=== PATIENT | male | born 1980 | race Caucasian/White ===

== ENCOUNTER 2018-01-25 20:20 | Emergency (ER) | payer BC, SELFPAY ==
[2018-01-25 20:21] VITALS: BP 148/86; PULSE 84; RESP 20; TEMP 36.9; O2SAT 97; BMI 37.3
[2018-01-25 21:38] LABS: Absolute Lymphocyte Count 1.51 X10^3/ul (0.83-4.51); Absolute Neutrophil Count 2.9 X10^3/uL (2.0-7.7); Basophil# 0.02 X10^3/uL; Basophil% 0.4 % (0-1); Eosinophil# 0.08 X10^3/uL; Eosinophils% 1.6 % (0-5); Hemoglobin 16.4 g/dl (13.0-16.5); Lymphocyte # 1.51 X10^3/ul (4.0); Lymphocyte % 30.5 % (19-41); Mean Corp Hgb Conc 34.9 g/gl (32-36); Mean Corpuscular Hgb 31.9 pg (27.0-32.0); Mean Corpuscular Volume 91.4 fL (80-94); Mean Platelet Vol. 9.7 fl (6.2-12.0); Monocyte# 0.39 X10^3/uL; Monocyte% 7.9 % (0-10); Neutrophil # 2.88 X10^3/uL (2.7-7.7); Neutrophil % 58.2 % (47-70); POSITIVE COUNT NO; POSITIVE DIFFERENTIAL NO; POSITIVE MORPHOLOGY NO; Platelet Count 151 K/mm3 (150-450); RBC Distribution Width CV 13.4 % (11.6-14.6); RBC Distribution Width SD 44.4 fl (35.1-43.9); Red Blood Count 5.14 M/mm3 (4.6-6.2)
[2018-01-25 22:02] LABS: AST(SGOT) 44 U/L (15-37); Alanine Aminotransfer ALT/SGPT 115 U/L (16-61); Albumin, Serum 4.4 g/dL (3.2-5.0); Alkaline Phosphatase 70 U/L (45-117); Globulin 3.3 g/dL (2.2-4.2); Protein, Total 7.7 g/dL (6.4-8.2)
[2018-01-25 22:29] VITALS: BP 150/93; PULSE 72; RESP 16; O2SAT 98
[2018-01-25 22:29] LABS: Bacteria 0 SEEN /hpf (None Seen); Mucous, Urine 0 SEEN /hpf (<or=2+); Squamous Epithelial Cells - UA 0 SEEN /hpf (0-5)
[2018-01-25 22:39] LABS: Color, Urine Yellow (Yellow); Glucose, Dipstick Normal (Normal); Ketone-Dipstick Negative (Negative); Leukocyte Esterase-Dipstick Negative /ul (Negative); Nitrite-Dipstick Negative (Negative); Occult Blood-Urine 10 /ul (Negative); Protein-Dipstick Negative (Negative); Urine Bilirubin Dipstick Negative (Negative); Urine Clarity Clear (Clear); Urine Urobilinogen Normal (Normal)
[2018-01-25 22:47] LABS: Red Blood Cells-Urine 0-5 SEEN /hpf (0-5)
[2018-01-25 22:48] LABS: White Blood Cells 0-5 SEEN /hpf (0-5)
[2018-01-25 23:05] LABS: Anion Gap 7 (5-15); BUN 13 mg/dL (7-18); Chloride 101 mmol/L (98-107); Creatinine, Serum 1.18 mg/dL (0.70-1.30); EST Glomerular Filtration Rate 74 mL/min (>60); Est Glom Filt Rate - Afr Amer 89 mL/min (>60); Estimated Creatinine Clearance 102.44 ml/min; Glucose 96 mg/dL (74-106); Magnesium 2.3 mg/dL (1.6-2.6); Phosphorus 3.1 mg/dL (2.5-4.9); Potassium 3.7 mmol/L (3.5-5.1); Sodium Level 139 mmol/L (136-145)
--- NOTE | 2018-01-25 23:45 | ED.VISSUMM ---
- ER Visit Summary Date of Service: 01/25/18 Chief Complaint: Swelling History of Present Illness: The patient is a 37 M presenting for evaluation secondary to swelling. Patient states that over the course last 3 days he has noticed progressive swelling in his lower extremity starting from his ankles going up his legs. Patient states that it is also associated with a tingling sensation in his legs face and fingers. Patient denies any chest pain shortness of breath exertional dyspnea or orthopnea. Patient states he had prior similar episodes before he went on blood pressure medicines, but has been on hydrochlorothiazide lisinopril for about 4 years now. No recent changes in his doses. No recent injuries or illnesses. Review of systems otherwise negative. Physical Examination: Vital signs within normal limits, normal oxygenation. Obese male no acute distress. Head normocephalic. Moist mucous membranes no evidence of lip or tongue swelling. Neck supple. Heart regular rate and rhythm no murmurs normal S1-S2 no gallops. Lungs sounds clear to auscultation bilaterally no rales noted in the bases. Abdomen soft nontender. +1 bilaterally symmetric lower extremity edema noted. No skin rashes. Remainder physical otherwise unremarkable. Test Results: CBC normal, chemistry normal, magnesium phosphate within normal limits, liver panel shows mildly elevated total bili at 2.0 which appears to be predominantly indirect. Emergency Department Course and Treatment: Patient presented for evaluation secondary to lower extremity edema. Patient was checked with lab work including CBC chemistry liver panel magnesium phosphate and urinalysis. He shows no signs of heart failure no signs of liver failure no signs of electrolyte abnormality. At this point I see no reason for further workup or admission, but rather the patient can follow-up with his primary care physician about this. He was instructed on conservative management of peripheral edema. All questions were answered patient was discharged. Disposition: Discharge Impression: 1. Peripheral edema This note was generated with [employer] dictation software. It may contain incorrect words, spelling, and punctuation that were not noted in review of the chart prior to signing ED Disposition - Plan for ED Patient: Disposition: Home or Assisted Living Chief Complaint: Allergic Reaction Diagnosis: Peripheral edema Instructions: ED Leg Swelling Bilateral Referrals: Salas Mahajan MD [Primary Care Provider] - 5-7 Days
[2018-01-26 00:19] VITALS: BP 147/81; PULSE 78; RESP 16; O2SAT 99
== END 2018-01-26 00:20 | disposition home or self-care (01) ==
PROVIDERS: Emergency Provider Emergency Medicine; Family Provider Family Medicine; PCP Family Medicine
DX: R60.0 Localized edema (principal); I10 Essential (primary) hypertension; E66.9 Obesity, unspecified; Z79.899 Other long term (current) drug therapy
CPT/HCPCS: 80048; 80076; 81001; 83735; 84100; 85025; 99282; A4216

== ENCOUNTER 2019-09-19 16:54 | Observation (INO) | payer BC, SELFPAY ==
[2019-09-19 16:55] VITALS: BP 159/105; PULSE 85; RESP 19; TEMP 36.6; O2SAT 98; BMI 39.1
--- NOTE | 2019-09-19 17:06 | CT_ITS ---
STUDY: CT ABDOMEN AND PELVIS WITHOUT CONTRAST REASON FOR EXAM: Male, 39 years old. Left flank pain. RADIATION DOSAGE (If Supplied By Facility): CTDIvol = ( 14.80 ) mGy, DLP = ( 851.86 ) mGycm TECHNIQUE: Transaxial images were obtained from the dome of the diaphragm to the symphysis pubis without oral contrast, and without intravenous contrast. Sagittal and coronal images were reconstructed. Individualized dose optimization techniques were used for this CT. COMPARISON: None. FINDINGS: The visualized lung bases are unremarkable. The visualized portions of the heart are within normal limits. There is decreased attenuation of the liver consistent with severe steatosis. There is hepatomegaly. Normal gallbladder and extrahepatic biliary system. There is moderate splenomegaly. Normal pancreas. Normal bilateral adrenal glands. Normal right kidney. Left kidney shows mild perinephric stranding and mild hydronephrosis along with left hydroureter related to a 7 mm distal left ureteral calculus seen on coronal image 53 and axial image 179. Normal visualized stomach. Normal small intestine. Normal colon. The appendix is visualized and appears normal. Normal abdominal aorta. Normal inferior vena cava. Normal retroperitoneum. Normal urinary bladder. There is a left-sided inguinal hernia containing adipose tissue. Normal osseous structures. CT/Abdomen/Pelvis without Cont IMPRESSION: Obstruction of the left kidney collecting system and ureter from a 7 mm distal left ureteral stone. Severe fatty infiltration. Hepatosplenomegaly. Electronically Signed: Davi Malcolm MD at 17:56 EST , Service support ,
[2019-09-19] MEDS: Ondansetron 4 MG/2 ML Vial IV (17:27)
[2019-09-19] MEDS: Morphine 4 MG/ML Syringe IV (17:28)
[2019-09-19] MEDS: 0.9% Normal Saline 1,000 ML 999 ML IV (17:28)
--- NOTE | 2019-09-19 17:29 | ED.DCSUM_ITS ---
- ER Visit Summary Date of Service: 09/19/19 Chief Complaint: Left flank pain History of Present Illness: The patient is a 39 M presenting with left flank pain. This started 3 hours ago. He was seen by his primary care physician and sent to the ED for concern of kidney stone. No history of kidney stones, he does have a family history of kidney stones. He has left flank pain, nausea, vomiting. Per PCP he had microscopic hematuria. Denies fever or other complaints. Physical Examination: Vitals are stable. Patient is afebrile. Alert no acute distress. HEENT exam is unremarkable. Neck is supple. Lungs are clear and equal bilaterally. Heart is regular rate and rhythm. Abdomen is soft nontender nondistended. Left CVA tenderness Extremities are unremarkable. Skin is warm and dry. No focal neurologic deficit. Remainder of exam is unremarkable. Emergency Department Course and Treatment: Patient was given IV fluids, morphine, Zofran. Urinalysis shows 0 white blood cells, 25-[address] abdomen pelvis shows obstruction of the left kidney collecting system and ureter from a 7 mm distal left ureteral stone. Severe fatty infiltration. Hepatosplenomegaly. Patient continues to have pain and was given Dilaudid IV. Patient continues to have pain. Discussed with Dr. Calero. Patient will be admitted. Disposition: Admission Impression: Urolithiasis This note was generated with [employer] dictation software. It may contain incorrect words, spelling, and punctuation that were not noted in review of the chart prior to signing ED Disposition - Plan for ED Patient: Referrals: Salas Mahajan MD [Primary Care Provider] -
[2019-09-19 17:45] LABS: Squamous Epithelial Cells - UA 0 SEEN /hpf (0-5); White Blood Cells 0 SEEN /hpf (0-5)
[2019-09-19 17:48] LABS: Color, Urine Yellow (Yellow); Glucose, Dipstick Normal (Normal); Ketone-Dipstick 5 mg/dl (Negative); Leukocyte Esterase-Dipstick Negative /ul (Negative); Nitrite-Dipstick Negative (Negative); Occult Blood-Urine 250 /ul (Negative); Protein-Dipstick 100 mg/dl (Negative); Urine Bilirubin Dipstick Negative (Negative); Urine Clarity Clear (Clear); Urine Urobilinogen Normal (Normal); Urine pH 6.5 (5.0 - 8.0)
[2019-09-19] MEDS: HYDROmorphone 1 MG/ML Syringe IV ×2 (18:05→19:42)
[2019-09-19 18:11] VITALS: RESP 12
[2019-09-19 18:16] LABS: Bacteria 2+ /hpf (None Seen); Mucous, Urine 3+ /hpf (<or=2+); Red Blood Cells-Urine 25-50 SEEN /hpf (0-5)
[2019-09-19 19:16] LABS: Absolute Lymphocyte Count 1.09 X10^3/uL (0.83-4.51); Basophil# 0.08 X10^3/uL; Basophil% 0.8 % (0-1); Eosinophil# 0.02 X10^3/uL; Eosinophils% 0.2 % (0-5); Lymphocyte # 1.09 X10^3/ul (4.0); Lymphocyte % 11.1 % (19-41); Mean Corp Hgb Conc 34.7 g/dL (32-36); Mean Corpuscular Hgb 31.3 pg (27.0-32.0); Mean Corpuscular Volume 90.2 fL (80-94); Mean Platelet Vol. 10.9 fl (6.2-12.0); Monocyte# 0.48 X10^3/uL; Monocyte% 4.9 % (0-10); NRBC Flagged by Analyzer 0 % (0-5); Neutrophil # 7.96 X10^3/uL (2.7-7.7); Neutrophil % 81.4 % (47-70); Platelet Count 211 K/mm3 (150-450); RBC Distribution Width CV 12.7 % (11.6-14.6); Red Blood Count 5.43 M/mm3 (4.6-6.2); White Blood Count 9.8 K/mm3 (4.4-11.0)
[2019-09-19 19:20] VITALS: BP 172/92; PULSE 78; RESP 20; O2SAT 94
[2019-09-19 19:23] LABS: Anion Gap 7 (5-15); BUN 21 mg/dL (7-18); BUN/Creat Ratio 13.6 RATIO (10-20); Calcium,Total 9.9 mg/dL (8.5-10.1); Chloride 104 mmol/L (98-107); Creatinine, Serum 1.54 mg/dL (0.70-1.30); EST Glomerular Filtration Rate 54 mL/min (>60); Est Glom Filt Rate - Afr Amer 65 mL/min (>60); Estimated Creatinine Clearance 76.97 ml/min; Glucose 112 mg/dL (74-106); Potassium 3.6 mmol/L (3.5-5.1); Sodium Level 139 mmol/L (136-145)
--- NOTE | 2019-09-19 19:26 | ED.RN ---
DR. LOPEZ MADE AWARE OF PATIENT'S INCREASING PAIN CURRENTLY A LEVEL 5/10 AND CLIMBING. SHE SAID SHE WOULD GIVE HIM SOMETHING IN A LITTLE BIT.
--- NOTE | 2019-09-19 19:30 | ED.RN ---
DR SAMUEL HERNANDEZ FOR DR LOPEZ
[2019-09-19 19:48] VITALS: BMI 39.1
--- NOTE | 2019-09-19 19:48 | PCM.HP.STD ---
Problem List (1) Ureteral calculi Status: Acute Comment: 7mm stone in distal left ureter History of Present Illness Date of Admission: 09/19/19 Chief Complaint: intractable pain from kidney stone The patient is a 39 year old Male with a 7mm stone in distal left ureter. Given multiple doses of morphine and still in pain ER asked me to admit patient for intractable pain. otherwise healthy male Past Medical History Allergies No Known Allergies Allergy (Verified 09/19/19 16:57) Home Medications: Ambulatory Orders Medication Instructions Recorded Cholecalciferol (Vitamin D3) 5,000 unit PO DAILY 01/25/18 [Vitamin D3] Hydrochlorothiazide [Hctz] 25 mg PO DAILY 01/25/18 Lisinopril [Zestril] 10 mg PO DAILY 01/25/18 Milk Thistle 150 mg PO DAILY 01/25/18 Surgical History: noncontributory Psychiatric History: No pertinent psych hx Lives: With Family Smoking Status: Former smoker Tobacco Use: Non-smoker Alcohol: None Drugs: None - *Family History Maternal History Items: No pertinent history Review of Systems Constitutional: Denies: Chills, Fever, Weight Change HEENT: Denies: Head Aches, Sinus Congestion, Sinus Drainage Cardiovascular: Denies: Chest Pain, Palpitations Respiratory: Denies: Cough, Shortness of breath at rest, Sputum production Gastrointestinal: Reports: Abdominal Pain. Denies: Nausea, Vomiting Genitourinary: Denies: Dysuria Musculoskeletal: Reports: Back Pain. Denies: Joint Pain, Joint Tenderness Skin: Denies: Rash, Wounds Neurological: Denies: Numbness, Tingling, Focal weakness Psychiatric: Denies: Anxiety, Depression, Homicidal Ideations, Suicidal Ideations Hematologic/ Lymphatic: Denies: Easy Bruising, Easy Bleeding VTE Information - Inpt Only VTE Present on Admission: No VTE Mechan Device Prophylaxis: SCD's Patient Problems: Active and Suspected Problems Ureteral calculi (Acute) 7mm stone in distal left ureter - Physical Exam Vitals/I&O's: Vital Signs Temp Pulse Resp BP Pulse Ox 97.9 F 78 20 H 172/92 H 94 09/19/19 16:55 09/19/19 19:20 09/19/19 19:20 09/19/19 19:20 09/19/19 19:20 Oxygen Delivery Method Room Air Weight: 142 kg Body Mass Index (BMI) 39.1 Intake and Output for Last 24 Hours 09/17/19 09/18/19 09/19/19 23:59 23:59 23:59 Intake Total 999 / 999 Balance 999 / 999 General: Alert, Oriented x3, Cooperative HEENT: Atraumatic, PERRLA, EOMI, Normocephalic Neck: Supple, No JVD, Negative Carotid Bruits Lungs: Clear to auscultation, Normal air movement Cardiovascular: Regular rate, No murmurs Abdomen: Bowel Sounds Present, Soft, Non Tender Extremities: No edema, Capillary Refill Less than 3 Seconds Skin: No rashes, No breakdown Musculoskeletal: No Tenderness to Palpation of Joints or Extremities Neurological: Cranial nerves II-XII grossly intact Psych/Mental Status: Normal Affect, Appropriate Laboratory Results 09/19/19 17:12: WBC 9.8, RBC 5.43, Hgb 17.0 H, Hct 49.0, MCV 90.2, MCH 31.3, MCHC 34.7, RDW Std Deviation 42.0, RDW Coeff of [place] 12.7, Plt Count 211, MPV 10.9, Immature Gran % (Auto) 1.600 H, Neut % (Auto) 81.4 H, Lymph % (Auto) 11.1 L, [place] % (Auto) 4.9, Eos % (Auto) 0.2, Baso % (Auto) 0.8, Absolute Neuts (auto) 8.0 H, Absolute Lymphs (auto) 1.09, Nucleated RBC % 0 09/19/19 17:12: Sodium 139, Potassium 3.6, Chloride 104, Carbon Dioxide 28.0, Anion Gap 7, BUN 21 H, Creatinine 1.54 H, Estim Creat Clear Calc 76.97, Est GFR (MDRD) Af Amer 65, Est GFR (MDRD) Non-Af 54 L, BUN/Creatinine Ratio 13.6, Glucose 112 H, Calcium 9.9 09/19/19 17:30: Urine Color Yellow, Urine Clarity Clear, Urine pH 6.5, Ur Specific [place] 1.020, Urine Protein 100 H, Urine Glucose (UA) Normal, Urine Ketones 5 H, Urine Occult Blood 250 H, Urine Nitrite Negative, Urine Bilirubin Negative, Urine Urobilinogen Normal, Ur Leukocyte Esterase Negative, Urine RBC 25-50 SEEN, Urine WBC 0 SEEN, Ur Squamous Epith Cells 0 SEEN, Urine Bacteria 2+, Urine Mucus 3+ Assessment/Plan All Active Problems Ureteral calculi (Acute) Rowdy for kidney stone if can't pass it then plan for surgery on Tuesday with ureteroscopy and laser stone and stent.
[2019-09-19 20:49] VITALS: BMI 39.4
[2019-09-19 21:00] VITALS: BP 159/92; PULSE 81; RESP 18; TEMP 36.6; O2SAT 98
[2019-09-19] MEDS: Acetaminophen 325 MG Tablet 650 MG PO (21:08)
[2019-09-19] MEDS: oxyCODONE 5 MG Tablet 10 MG PO (21:09)
--- NOTE | 2019-09-19 21:15 | NURSING ---
pt had large emesis in sink after po pain meds, iv antiemetic and pain med then given
[2019-09-19] MEDS: proCHLORPERazine 10 MG/2 ML Vial 5 MG IV (21:19)
[2019-09-19] MEDS: 0.9% Saline Lock 10 ML Syringe IV ×2 (21:20→23:05)
[2019-09-19] MEDS: Morphine 2 MG/ML Syringe IV (21:20)
[2019-09-19] MEDS: 0.9% Normal Saline 1,000 ML 75 ML IV (23:04)
[2019-09-19] MEDS: Famotidine 20 MG Tablet PO (23:06)
[2019-09-20 03:50] VITALS: BP 142/76; PULSE 81; RESP 16; TEMP 37.1; O2SAT 98
--- NOTE | 2019-09-20 05:55 | RAD_ITS ---
INDICATION: Follow-up for kidney stone. EXAMINATION/TECHNIQUE: X-RAY - supine views of the Abdomen COMPARISON: Comparison is made with prior CT scan of the abdomen and pelvis dated September 19, 2019. FINDINGS: BOWEL GAS PATTERN: Moderate amount of fecal material is seen in the colon. No bowel or stomach distention. FREE AIR: Not assessed on a single supine view. ORGANOMEGALY: Not seen. CALCIFICATIONS: Questionable 4 mm calculus at left ureterovesical junction. LOWER CHEST: No acute pathology. BONES AND SOFT TISSUES: Multiple phleboliths are seen in the pelvis. RAD/Abdomen Single View IMPRESSION: Non-obstructive bowel gas pattern. Multiple phleboliths are seen in the pelvis. This makes it difficult to assess for possible ureteral calculus although there is a questionable 4 mm calculus at left ureterovesical junction. Electronically Signed: Samson Artis, at 8:48 EST , Service support ,
--- NOTE | 2019-09-20 06:00 | EKG12_ITS ---
Test Reason : AM Blood Pressure : / mmHG Vent. Rate : 083 BPM Atrial Rate : 083 BPM P-R Int : 186 ms QRS Dur : 118 ms QT Int : 378 ms P-R-T Axes : 042 027 020 degrees QTc Int : 444 ms Normal sinus rhythm Normal ECG When compared with ECG of 19-FEB-2016 15:31, No significant change was found Confirmed by GISSELL COOMBS, WILLEM ([id number]), editor greeting card TATO VEGA ([id number]) on 09/25/2019 3:12:42 PM Referred By: Rodriguez Calero Confirmed By:WILLEM BORRERO MD
[2019-09-20 06:34] LABS: Absolute Lymphocyte Count 1.47 X10^3/uL (0.83-4.51); Absolute Neutrophil Count 5.5 X10^3/uL (2.0-7.7); Basophil# 0.05 X10^3/uL; Basophil% 0.6 % (0-1); Eosinophil# 0.03 X10^3/uL; Eosinophils% 0.4 % (0-5); Hematocrit 43.1 % (40-54); Hemoglobin 14.9 g/dL (13.0-16.5); Lymphocyte # 1.47 X10^3/ul (4.0); Lymphocyte % 18.6 % (19-41); Mean Corp Hgb Conc 34.6 g/dL (32-36); Mean Corpuscular Hgb 31.2 pg (27.0-32.0); Mean Corpuscular Volume 90.4 fL (80-94); Mean Platelet Vol. 10.1 fl (6.2-12.0); Monocyte# 0.79 X10^3/uL; NRBC Flagged by Analyzer 0 % (0-5); Neutrophil # 5.48 X10^3/uL (2.7-7.7); Neutrophil % 69.4 % (47-70); Platelet Count 150 K/mm3 (150-450); RBC Distribution Width CV 12.6 % (11.6-14.6); RBC Distribution Width SD 41.7 fl (35.1-43.9); Red Blood Count 4.77 M/mm3 (4.6-6.2); White Blood Count 7.9 K/mm3 (4.4-11.0)
[2019-09-20 06:48] LABS: Anion Gap 7 (5-15); BUN 20 mg/dL (7-18); BUN/Creat Ratio 13.1 RATIO (10-20); Calcium,Total 8.7 mg/dL (8.5-10.1); Chloride 105 mmol/L (98-107); Creatinine, Serum 1.53 mg/dL (0.70-1.30); EST Glomerular Filtration Rate 54 mL/min (>60); Est Glom Filt Rate - Afr Amer 65 mL/min (>60); Estimated Creatinine Clearance 77.47 ml/min; Glucose 95 mg/dL (74-106); Potassium 3.5 mmol/L (3.5-5.1); Sodium Level 140 mmol/L (136-145)
--- NOTE | 2019-09-20 07:36 | PCM.CONS.B ---
Problem List (1) Ureteral calculi Status: Acute Comment: 7mm stone in distal left ureter - Consult Date of Consult: 09/20/19 Patient admitted overnight for a kidney stone today is doing relatively well plan to get a KUB to see if he is past the stone today we talked about doing surgery we will put him on the schedule for tomorrow for shockwave lithotripsy he is agreeable with this plan n.p.o. at midnight we will have him sign a consent form.
[2019-09-20] MEDS: 0.9% Saline Lock 10 ML Syringe IV ×2 (07:44→08:25)
[2019-09-20 09:47] VITALS: BP 155/78; PULSE 73; RESP 18; TEMP 36.8; O2SAT 94
[2019-09-20] MEDS: Famotidine 20 MG Tablet PO ×2 (10:25→20:28)
[2019-09-20] MEDS: Lisinopril 10 MG Tablet PO (10:25)
[2019-09-20] MEDS: hydroCHLOROthiazide 25 MG Tablet PO (10:25)
[2019-09-20 10:30] VITALS: PULSE 72
[2019-09-20] MEDS: 0.9% Normal Saline 1,000 ML 75 ML IV (12:55)
[2019-09-20 13:53] VITALS: BP 143/87; PULSE 80; RESP 18; TEMP 37; O2SAT 95
--- NOTE | 2019-09-20 14:28 | CHAPLAIN ---
Type of Pastoral Visit _x__ Initial Visit ___ Follow-up Visit ___ On-call Visit ___ General Patient Visit ___ Spiritual Assessment ___ Family Conference ___ Bereavement ___ Rapid Response ___ Code Blue ___ Other (describe below) Pastoral Care Referral From _x__ Patient _x__ Family ___ Nurse ___ Physician ___ Tinsmith Apprentice ___ Robotic Maintenance Technician ___ Other (describe below) Sacrament/Intervention _x__ Active listening ___ Anointing ___ Church ___ Bereavement ___ Communion ___ Annia exploration ___ ___ Life review _x__ Prayer ___ Reconciliation ___ Sacrament of Sick _x__ Supportive presence ___ Wedding ___ Other (describe below) Pastoral Comments
[2019-09-20 20:20] VITALS: BP 146/93; PULSE 71; RESP 16; TEMP 36.9; O2SAT 97
[2019-09-21] VITALS (10 sets, daily range): BP systolic 141–160; BP diastolic 86–105; PULSE 70–98; RESP 16–22; TEMP 36.7–37.3; O2SAT 94–99
[2019-09-21] MEDS: 0.9% Normal Saline 1,000 ML 75 ML IV ×2 (02:11→12:45)
[2019-09-21] MEDS: Lisinopril 10 MG Tablet PO (09:48)
[2019-09-21] MEDS: Famotidine 20 MG Tablet PO (09:48)
[2019-09-21] MEDS: hydroCHLOROthiazide 25 MG Tablet PO (09:48)
--- NOTE | 2019-09-21 10:27 | PCM.DC ---
- Discharge Diagnoses Current Active Problems: Current Active and Chronic Problems Ureteral calculi (Acute) 7mm stone in distal left ureter Reason(s) for Visit for Discharge Instructions: left ureteroscopy laser and stent You will use the following diet at home:: Regular Your food should be the consistency of: Regular Discharge Activity: Return to Normal Activity Call your doctor if your incision/area has: Continuous Slow Oozing, Sudden Increased Bleeding, Increased Pain/ Swelling, Increased Redness Suture Line Care: Avoid Pulling/Pushing, Avoid Pinching/Bending Allergies/Adverse Reactions: Allergies No Known Allergies Allergy (Verified 09/19/19 16:57) Medications to take at Discharge Cholecalciferol (Vitamin D3) [Vitamin D3] 5,000 unit PO DAILY 01/25/18 Hydrochlorothiazide [Hctz] 25 mg PO DAILY 01/25/18 Lisinopril [Zestril] 10 mg PO DAILY 01/25/18 Ciprofloxacin [Cipro] 500 mg PO BID #6 tab 09/21/19 Hydrocodone/Acetaminophen [[place] 5-325 Tablet] 1 ea PO Q4H PRN PRN 5 Days #14 tab 09/21/19 Phenazopyridine [Pyridium] 100 mg PO TID #14 tab 09/21/19 The following prescriptions were given: Ciprofloxacin [Cipro] 500 mg PO BID #6 tab Prescription Printed Hydrocodone/Acetaminophen [[place] 5-325 Tablet] 1 ea PO Q4H PRN PRN 5 Days #14 tab PRN Reason: Pain Score 1-10/10 Prescription Printed Phenazopyridine [Pyridium] 100 mg PO TID #14 tab Prescription Printed Primary Care Physician: Salas Mahajan MD [Primary Care Provider] - Test Results: Test results from this visit will be discussed in further detail at your follow-up appointment, if applicable. Please Follow Up With: Luisa Weaver Dr's SHIPPING HAND When: Next week for stent removal
[2019-09-21] MEDS: Cefazolin 2 GM in 0.9% Normal Saline 100 ML IV (11:04)
--- NOTE | 2019-09-21 11:14 | OP.PCM_ITS ---
Problem List (1) Ureteral calculi Status: Acute Comment: 7mm stone in distal left ureter Report of Operation Date of Procedure: 09/21/19 Pre-Operative Diagnosis: Left ureteral calculi causing obstruction Post-Operative Diagnosis: The same Surgery/Procedure Performed:: Cystoscopy, left ureteroscopy, balloon dilation of the left ureter, laser lithotripsy of the stone, left retrograde pyelogram, left interpretation of fluoroscopic images, left stent placement. Description of Surgical Findings:: 39-year-old male taken back to the operating room at this reduction of anesthesia he was placed in dorsal lithotomy position, penis and testicles were prepped and draped in usual sterile fashion, he was given antibiotics beforehand, but into the bladder with a 21 [place] rigid cystourethroscope, the entire length the urethra is normal, the prostate was normal, identified the left ureteral orifice and advanced a wire up the left ureter, I then advanced a balloon dilator over the wire and balloon dilated the distal left ureter with a 12 [place] 10 cm balloon dilator once the ureter was balloon dilated and of the wire in place backed out the cystoscope and then next the wire went in with a semirigid ureteroscope was able to get to the urethra and the bladder quite easily I then identified the ureter was able to get into the ureter quite easily went up the ureter and encountered the stone we then used a 270 ?m laser fiber and laser the stone with tiny pieces used settings of 1.6 J and 6 Hz and after 2 minutes of lasering the stone the stone was lasered completely and then performed a retrograde pyelogram, and then advanced a wire up over the wire and placed a stent and then left a stent in position left the string of the stent bladder was drained left a long string of stents for easy extraction next week and the stone was completely treated. Type of Anesthesia:: General Drains: stent left side - Admit VTE Documentation VTE Present on Admission: No VTE Mechan Device Prophylaxis: SCD's
--- NOTE | 2019-09-21 11:17 | PCM.DC.SUM ---
Discharge Date and Diagnosis - Problem List Patient Problems: Active and Suspected Problems Ureteral calculi (Acute) 7mm stone in distal left ureter Date of Admission: 09/19/19 Date of Discharge: 09/21/19 - Primary Discharge Diagnosis Active and Suspected Problems Ureteral calculi (Acute) 7mm stone in distal left ureter Hospital Course and Treatment Imaging Results: 09/21/19 16:25 O.R. Fluoro for C-Arm [RAD] Urgent Operations: - - left ureteroscopy laser of stone Procedures: None Summary of Care Provided: The patient is a 39 year old Male admitted for stone under went laser stone and stent, discharged home after procedure with a stent Patient Problems: Active and Suspected Problems Ureteral calculi (Acute) 7mm stone in distal left ureter - Physical Exam Vitals/I&O's: Vital Signs Temp Pulse Resp BP Pulse Ox 99.2 F H 78 22 H 151/86 H 95 09/21/19 08:35 09/21/19 08:35 09/21/19 08:35 09/21/19 08:35 09/21/19 08:35 Oxygen Delivery Method Room Air Weight: 143.335 kg Body Mass Index (BMI) 39.4 Intake and Output for Last 24 Hours 09/19/19 09/20/19 09/21/19 23:59 23:59 23:59 Intake Total 1100 / 1100 1868.75 / 1868.75 995 / 995 Output Total 500 / 500 3775 / 3775 650 / 650 Balance 600 / 600 -1906.25 / -1906.25 345 / 345 General: Alert, Oriented x3, Cooperative HEENT: Atraumatic, PERRLA, EOMI, Normocephalic Neck: Supple, No JVD, Negative Carotid Bruits Lungs: Clear to auscultation, Normal air movement Cardiovascular: Regular rate, No murmurs Abdomen: Bowel Sounds Present, Soft, Non Tender Extremities: No edema, Capillary Refill Less than 3 Seconds Skin: No rashes, No breakdown Musculoskeletal: No Tenderness to Palpation of Joints or Extremities Neurological: Cranial nerves II-XII grossly intact Psych/Mental Status: Normal Affect, Appropriate Current Medications Acetaminophen (Tylenol) 650 mg PO Q6H PRN PRN PRN Reason: Pain Score 1-3/Temp > 100.7 F Last Admin: 09/19/19 21:08 Dose: 650 mg Documented by: Docusate Sodium (Colace) 100 mg PO BID PRN PRN PRN Reason: Constipation Famotidine (Pepcid) 20 mg PO BID [facility] Last Admin: 09/21/19 09:48 Dose: 20 mg Documented by: Hydrochlorothiazide (Hctz) 25 mg PO DAILY [facility] Last Admin: 09/21/19 09:48 Dose: 25 mg Documented by: Sodium Chloride () 1,000 mls @ 75 mls/hr IV .[id number] [facility] Last Admin: 09/21/19 02:11 Dose: 75 mls/hr Documented by: Lisinopril (Zestril) 10 mg PO DAILY [facility] Last Admin: 09/21/19 09:48 Dose: 10 mg Documented by: Morphine Sulfate () 2 mg IV Q3H PRN PRN PRN Reason: Pain Score 6-10/10 Last Admin: 09/19/19 21:20 Dose: 2 mg Documented by: Ondansetron HCl (Zofran) 4 mg IV Q8H PRN PRN PRN Reason: NAUSEA/VOMITING Oxycodone HCl (Oxyir) 10 mg PO Q4H PRN PRN PRN Reason: Pain Score 4-5/10 Last Admin: 09/19/19 21:09 Dose: 10 mg Documented by: Prochlorperazine Edisylate (Compazine Iv) 5 mg IV Q4H PRN PRN PRN Reason: Breakthrough nausea/vomiting Last Admin: 09/19/19 21:19 Dose: 5 mg Documented by: Sodium Chloride () 10 - 40 ml IV UD PRN PRN Reason: SALINE FLUSH Last Admin: 09/20/19 08:25 Dose: 10 ml Documented by: Temazepam (Restoril) 15 mg PO QHS PRN PRN PRN Reason: INSOMNIA Discharge Activity: Return to Normal Activity Call your doctor if your incision/area has: Continuous Slow Oozing, Sudden Increased Bleeding, Increased Pain/ Swelling, Increased Redness Suture Line Care: Avoid Pulling/Pushing, Avoid Pinching/Bending Home Medications: Medications to take at Discharge Cholecalciferol (Vitamin D3) [Vitamin D3] 5,000 unit PO DAILY 01/25/18 Hydrochlorothiazide [Hctz] 25 mg PO DAILY 01/25/18 Lisinopril [Zestril] 10 mg PO DAILY 01/25/18 Ciprofloxacin [Cipro] 500 mg PO BID #6 tab 09/21/19 Hydrocodone/Acetaminophen [[place] 5-325 Tablet] 1 ea PO Q4H PRN PRN 5 Days #14 tab 09/21/19 Phenazopyridine [Pyridium] 100 mg PO TID #14 tab 09/21/19 Following Prescrptions Were Given to Patient: Ciprofloxacin [Cipro] 500 mg PO BID #6 tab Prescription Printed Hydrocodone/Acetaminophen [[place] 5-325 Tablet] 1 ea PO Q4H PRN PRN 5 Days #14 tab PRN Reason: Pain Score 1-08/23 Prescription Printed Phenazopyridine [Pyridium] 100 mg PO TID #14 tab Prescription Printed Primary Care Physician: Salas Mahajan MD [Primary Care Provider] - Please Follow Up With: Luisa Weaver - Dr Calero's SECURITY SUPPORT ANALYST When: Next week for stent removal Medical Necessity - Tobacco Use Smoking Status: Former smoker Tobacco Use: Non-smoker Meaningful Use Info Meaningful Use Diagnoses (Choose all that apply): None applicable
== END 2019-09-21 15:23 | disposition home or self-care (01) ==
LOC: ED 17:10 → MS3 20:02
PROVIDERS: Admitting Provider Urology; Emergency Provider Emergency Medicine; Family Provider Family Medicine; PCP Family Medicine; Referring Provider Urology; Visit Provider Urology
PROC: 0TJ98ZZ Inspection of Ureter, Via Natural or Artificial Opening Endoscopic (ICD-10-PCS; CPT 52352; principal; 2019-09-21 16:15)
DX: N13.2 Hydronephrosis with renal and ureteral calculous obstruction (principal); I10 Essential (primary) hypertension; G47.30 Sleep apnea, unspecified; Z23 Encounter for immunization; Z87.891 Personal history of nicotine dependence; Z79.899 Other long term (current) drug therapy
CPT/HCPCS: 00918; 52356; 36415; 74018; 74176; 76000; 80048; 81001; 85025; 93005; 96361; 96374; 96375; 96376; 99218; 99284; J7030; 90686; A4216; C1769; C2617; G0378; J2405

== ENCOUNTER → 2019-09-25 | Outpatient (CLI) | payer BC, SELFPAY ==
[2019-09-19 20:49] VITALS: BMI 39.4
== END | disposition home or self-care (01) ==
LOC: LABSPEC 17:07
PROVIDERS: Family Provider Family Medicine; PCP Family Medicine; Referring Provider Nurse Practitioner Adult Health; Visit Provider Nurse Practitioner Adult Health
DX: R82.998 Other abnormal findings in urine (principal)
CPT/HCPCS: 87086

== ENCOUNTER → 2019-11-19 15:12 | Outpatient (CLI) | payer BC, SELFPAY ==
[2019-11-19 16:04] LABS: Anion Gap 6 (5-15); BUN 17 mg/dL (7-18); BUN/Creat Ratio 15.2 RATIO (10-20); Chloride 106 mmol/L (98-107); Creatinine, Serum 1.12 mg/dL (0.70-1.30); EST Glomerular Filtration Rate 77 mL/min (>60); Est Glom Filt Rate - Afr Amer 94 mL/min (>60); Glucose 101 mg/dL (74-106); Potassium 3.8 mmol/L (3.5-5.1); Sodium Level 139 mmol/L (136-145)
[2019-11-20 09:03] LABS: PTHIN 48.3 pg/mL (18.4-80.1)
== END ==
PROVIDERS: Family Provider Family Medicine; PCP Family Medicine; Referring Provider Urology; Visit Provider Urology
DX: N20.1 Calculus of ureter (principal)
CPT/HCPCS: 36415; 80048; 83970

== ENCOUNTER → 2021-08-27 21:21 | Outpatient (CLI) | payer BC, SELFPAY ==
[2021-08-27 21:46] LABS: Absolute Neutrophil Count 4.4 X10^3/uL (2.0-7.7); Basophil# 0.05 X10^3/uL; Basophil% 0.7 % (0-1); Eosinophil# 0.07 X10^3/uL; Hemoglobin 16.3 g/dL (13.0-16.5); Lymphocyte % 25.9 % (19-41); Mean Corp Hgb Conc 34.7 g/dL (32-36); Mean Corpuscular Hgb 31.2 pg (27.0-32.0); Mean Platelet Vol. 10.7 fl (6.2-12.0); Monocyte# 0.54 X10^3/uL; Monocyte% 7.8 % (0-10); NRBC Flagged by Analyzer 0 % (0-5); Neutrophil % 63.3 % (47-70); Platelet Count 195 K/mm3 (150-450); RBC Distribution Width SD 42.7 fl (35.1-43.9); Red Blood Count 5.22 M/mm3 (4.6-6.2)
[2021-08-27 22:32] LABS: ALB/GLOB Ratio 1.2 RATIO (0.9-2.4); AST(SGOT) 60 U/L (15-37); Alanine Aminotransfer ALT/SGPT 153 U/L (16-61); Albumin, Serum 4.2 g/dL (3.2-5.0); Alkaline Phosphatase 78 U/L (45-117); Anion Gap 5 (5-15); BUN 14 mg/dL (7-18); Calcium,Total 9.3 mg/dL (8.5-10.1); Chloride 108 mmol/L (98-107); Cholesterol 179 mg/dL (200); Creatinine, Serum 1.27 mg/dL (0.70-1.30); EST Glomerular Filtration Rate 66 mL/min (>60); Est Glom Filt Rate - Afr Amer 80 mL/min (>60); Globulin 3.5 g/dL (2.2-4.2); Glucose 91 mg/dL (74-106); High Density Lipoprotein 30 mg/dL; Potassium 3.7 mmol/L (3.5-5.1); Protein, Total 7.7 g/dL (6.4-8.2); Sodium Level 141 mmol/L (136-145); Triglycerides 199 mg/dL; Very Low Density Lipoprotein 40 mg/dL (5-40)
== END ==
PROVIDERS: PCP Family Medicine; Visit Provider Nurse Practitioner
DX: Z00.00 Encounter for general adult medical examination without abnormal findings (principal)
CPT/HCPCS: 80053; 80061; 85025

== ENCOUNTER → 2022-07-29 | Outpatient (CLI) | payer BC, SELFPAY ==
[2022-07-29 21:38] LABS: Absolute Lymphocyte Count 1.19 X10^3/uL (0.83-4.51); Absolute Neutrophil Count 3.4 X10^3/uL (2.0-7.7); Basophil# 0.04 X10^3/uL; Basophil% 0.7 % (0-1); Eosinophil# 0.16 X10^3/uL; Hematocrit 47.3 % (40-54); Hemoglobin 16.3 g/dL (13.0-16.5); Lymphocyte # 1.19 X10^3/ul (0.83-4.51); Lymphocyte % 22.3 % (19-41); Mean Corp Hgb Conc 34.5 g/dL (32-36); Mean Corpuscular Volume 92.7 fL (80-94); Mean Platelet Vol. 10.8 fl (6.2-12.0); Monocyte# 0.51 X10^3/uL; Monocyte% 9.6 % (0-10); NRBC Flagged by Analyzer 0 % (0-5); Neutrophil # 3.42 X10^3/uL (2.7-7.7); Platelet Count 156 K/mm3 (150-450); RBC Distribution Width CV 13.8 % (11.6-14.6); RBC Distribution Width SD 47.5 fl (35.1-43.9); White Blood Count 5.3 K/mm3 (4.4-11.0)
[2022-07-29 22:07] LABS: ALB/GLOB Ratio 1.3 RATIO (0.9-2.4); AST(SGOT) 45 U/L (15-37); Alanine Aminotransfer ALT/SGPT 122 U/L (16-61); Albumin, Serum 4.1 g/dL (3.2-5.0); Alkaline Phosphatase 90 U/L (45-117); Anion Gap 8 (5-15); BUN 16 mg/dL (7-18); BUN/Creat Ratio 14.2 RATIO (10-20); Calcium,Total 9.3 mg/dL (8.5-10.1); Chloride 104 mmol/L (98-107); Cholesterol 123 mg/dL (200); Creatinine, Serum 1.13 mg/dL (0.70-1.30); EST Glomerular Filtration Rate 76 mL/min (>60); Est Glom Filt Rate - Afr Amer 91 mL/min (>60); Globulin 3.2 g/dL (2.2-4.2); Glucose 110 mg/dL (74-106); High Density Lipoprotein 29 mg/dL; Potassium 3.3 mmol/L (3.5-5.1); Protein, Total 7.3 g/dL (6.4-8.2); Sodium Level 139 mmol/L (136-145); Triglycerides 150 mg/dL; Very Low Density Lipoprotein 30 mg/dL (5-40)
== END | disposition home or self-care (01) ==
PROVIDERS: PCP Family Medicine; Visit Provider Nurse Practitioner
DX: I10 Essential (primary) hypertension (principal)
CPT/HCPCS: 80053; 80061; 85025

== ENCOUNTER → 2022-08-19 | Outpatient (CLI) | payer BC, SELFPAY ==
[2022-08-19 21:44] LABS: ALB/GLOB Ratio 1.4 RATIO (0.9-2.4); AST(SGOT) 33 U/L (15-37); Alanine Aminotransfer ALT/SGPT 85 U/L (16-61); Albumin, Serum 4.2 g/dL (3.2-5.0); Alkaline Phosphatase 87 U/L (45-117); Anion Gap 7 (5-15); BUN 14 mg/dL (7-18); BUN/Creat Ratio 13.1 RATIO (10-20); Calcium,Total 9.3 mg/dL (8.5-10.1); Chloride 104 mmol/L (98-107); Creatinine, Serum 1.07 mg/dL (0.70-1.30); EST Glomerular Filtration Rate 80 mL/min (>60); Est Glom Filt Rate - Afr Amer 97 mL/min (>60); Globulin 3.1 g/dL (2.2-4.2); Glucose 111 mg/dL (74-106); Magnesium 2.1 mg/dL (1.6-2.6); Potassium 3.4 mmol/L (3.5-5.1); Protein, Total 7.3 g/dL (6.4-8.2); Sodium Level 139 mmol/L (136-145); Thyroid Stim Hormone (TSH) 1.02 uIU/mL (0.358-3.74)
== END | disposition home or self-care (01) ==
PROVIDERS: PCP Family Medicine; Visit Provider Nurse Practitioner
DX: E87.6 Hypokalemia (principal); K76.0 Fatty (change of) liver, not elsewhere classified
CPT/HCPCS: 80053; 83735; 84443

== ENCOUNTER 2022-08-20 16:18 | Emergency (ER) | payer OTHER, SELFPAY ==
[2022-08-20 16:19] VITALS: BP 130/99; PULSE 101; RESP 18; TEMP 37.6; O2SAT 96; BMI 36.8
[2022-08-20 16:23] VITALS: BP 130/99; PULSE 101; RESP 16; TEMP 37.6; O2SAT 96
[2022-08-20 17:49] VITALS: PULSE 92; RESP 18; TEMP 37.9; O2SAT 97
--- NOTE | 2022-08-20 18:27 | EDS_ITS ---
HPI HPI - URI History of Present Illness Chief Complaint: Ear Problem Detail of Chief Complaint: Earache Informant: patient and spouse/S.O. Onset/Context/Timing Onset: Days Context: Gradual Onset Timing: Continuous Current Severity: Moderate Maximum Severity: Moderate Narrative Narrative: 43-year-old male history of hypertension. Was seen in urgent care initially placed on antibiotic he thinks was amoxicillin did not improve. He has had URI symptoms. Last 2 days he has had ear pain. He was seen again placed on ofloxacin eardrops and a Z-Vito. That is not improving. Denies nausea or vomiting. Denies any trauma to his ear. Denies any prior ear surgery. Prior similar symptoms: No Recent Illness/Hospitalization: No ROS ROS ED ROS Narrative Right earache. Review of Systems ROS Unobtainable: Denies due to encephalopathy Constitutional Constitutional ED: Denies chills or fever(s) Eyes Eyes: Denies blurry vision ENT ENT ED: Reports ear pain Cardiovascular Cardiovascular: Denies chest pain Respiratory/Chest Respiratory/Chest: Denies cough or dyspnea Gastrointestinal Gastrointestinal: Denies abdominal pain Genitourinary Genitourinary ED: Denies dysuria or hematuria Musculoskeletal Musculoskeletal: Denies arthralgias Integumentary Denies abscess Neurologic Neurologic: Denies headache(s) Psychiatric Psychiatric: Denies anxiety Endocrine Endocrinology: Denies cold intolerance Hematologic/Lymphatic Hematologic/Lymphatic: Denies easy bleeding Allergic/Immunologic Allergic/Immunologic ED: Denies mouth swelling or tongue swelling [facility] Medical History CHF (congestive heart failure) Fatty liver Hypertension Sleep apnea Ureteral calculi Home Medications cholecalciferol (vitamin D3) 125 mcg (5,000 unit) capsule 5,000 unit PO DAILY 01/25/18 [History Last Taken 09/18/19] albuterol sulfate 90 mcg/actuation aerosol inhaler (ProAir HFA) 2 puff inhalation Q4H PRN shortness of breath or wheezing #6.7 grams 07/29/22 [Rx Last Taken Unknown] hydrochlorothiazide 25 mg tablet 25 mg PO DAILY #90 tabs 07/29/22 [Rx Last Taken Unknown] lisinopril 20 mg tablet 20 mg PO DAILY #90 tabs 07/29/22 [Rx Last Taken Unknown] potassium chloride 20 mEq tablet,extended release 20 meq PO DAILY #90 tabs 07/30/22 [Rx Last Taken Unknown] azithromycin 250 mg tablet 250 mg PO QDAY 5 days #6 tabs 08/19/22 [Rx Last Taken Unknown] ofloxacin 0.3 % ear drops 10 drp otic (ear) DAILY 7 days #10 mL 08/19/22 [Rx Last Taken Unknown] Allergy/AdvReac Type Severity Reaction Status Date / Time No Known Allergies Allergy Verified 09/19/19 16:57 Surgical History History of lithotripsy Social History Smoking Status: Former smoker EXAM Physical Exam Narrative Exam Narrative: 14 mm acute distress vital signs stable ENT exam left ear normal. Posterior pharynx normal. Right ear obvious otitis externa. Swollen close. I placed a wick no problem. Unable to see the eardrum. No blood. No swelling on the face. Or redness. Neck nontender. No lymphadenopathy. Trachea midline. Lungs are clear. Heart regular rhythm. No murmur. Abdomen soft nontender. Otherwise exam unremarkable. Const Vital Signs: 08/20/22 16:19 08/20/22 16:23 08/20/22 17:49 Temperature 99.6 F H 99.6 F H 100.3 F H Temperature Source Temporal Temporal Oral Pulse Rate 101 H 101 H 92 Respiratory Rate 18 16 18 Blood Pressure 130/99 H 130/99 H Blood Pressure Mean 109 109 Pulse Ox 96 96 97 Oxygen Delivery Method Room Air Room Air Room Air Positive well nourished, well developed and obese; Negative for cachectic or contractures General Appearance ED: well developed and NAD; Negative for cachectic, contractures, cyanotic, diaphoretic or pallor Nutritional Appearance: obese; Negative for cachectic HEENT Reports moist mucous membranes; Denies dry mucous membranes HEENT Narrative: Right ear has otitis externa. Swelling closed. I placed a ear wick. Patient tolerated well. normocephalic and atraumatic Face and Sinus: Negative for sinus tenderness or maxillary instability Mouth ED: No dry mucous membranes Mouth: No dry mucous membranes Teeth and Gingiva: Negative for caries Throat: posterior oropharynx normal; Negative for tonsils abnormal Eyes PERRL and EOMs intact bilaterally General Eye ED: Negative for pale conjunctiva or scleral icterus Neck no lymphadenopathy, supple, no meningeal signs and no JVD General: Negative for anterior neck swelling Resp normal respiratory effort and clear to auscultation bilaterally Effort and Inspection: Negative for retractions Auscultation: Negative for rales or rhonchi Cardio S1 normal heart sound, S2 normal heart sound and no murmurs Rate: regular rate; Negative for bradycardia Rhythm: regular rhythm; Negative for abnormal rhythm GI non-tender, non-distended and no masses Inspection: Negative for abdominal distention Auscultation: normoactive bowel sounds Palpation: soft; Negative for tender Back/Spine no CVA tenderness and normal ROM General Back: Negative for CVA tenderness Cervical Spine: Negative for cervical spine tenderness Thoracic Spine / Upper Back: Negative for thoracic spinal tenderness Lumbar Spine / Lower Back: Negative for lumbar spinal tenderness Sacrum: Negative for tenderness Extremity normal to inspection and full ROM General Extremety ED: Negative for cyanosis or tenderness General Extremity: Negative for cyanosis Neuro oriented x3 and No CN's II-XII intact bilaterally Sensorium / Orientation: alert, oriented to person, oriented to place and oriented to time; Negative for orientation impaired, lethargic, stuporous or other Motor Exam: strength 5/5 throughout Psych mental status grossly normal Appearance: Negative for other Attitude: No agitated Mood & Affect: Negative for depressed, anxious or tearful Skin General Skin Exam: Negative for jaundice or pallor Lesions: no lesions Rashes: no rashes Trauma: Negative for abrasion MDM MDM MDM Narrative Medical decision making narrative: 42-year-old with right otitis externa. Placed ear wick. He is already on ofloxacin drops and a Z-Vito. Given 2 [place] here for pain. At home Tylenol Motrin. Discharge Plan Triage Chief Complaint: Ear Problem ED Provider: Javad Herman Dx/Rx/DC Orders Clinical Impression: External otitis of right ear Instructions: ED External Ear Infection (Adult) Prescriptions: No Action hydrochlorothiazide 25 mg tablet 25 mg PO DAILY Qty: 90 3RF lisinopril 20 mg tablet 20 mg PO DAILY Qty: 90 0RF albuterol sulfate [ProAir HFA] 90 mcg/actuation HFA aerosol inhaler 2 puff inhalation Q4H PRN (Reason: shortness of breath or wheezing) Qty: 6.7 12RF potassium chloride 20 mEq tablet extended release 20 meq PO DAILY Qty: 90 3RF ofloxacin 0.3 % drops 10 drp otic (ear) DAILY 7 Days Qty: 10 0RF Rx Instructions: place in R ear with a cotton ball 2 x a day azithromycin 250 mg tablet 250 mg PO QDAY 5 Days Qty: 6 0RF Rx Instructions: 2 po qd for 1 day then 1 po qd for 4 days with food or after eating cholecalciferol (vitamin D3) 5,000 UNIT capsule 5,000 unit PO DAILY Primary Care Provider: Debbie Alvarez NP Referrals: Rainer Knox MD [Med Staff - Active Staff] - 3-5 Days if not improving Debbie Alvarez NP, SOFTWARE APPLICATIONS DEVELOPER-C [Primary Care Provider] - Activity Restrictions/Additional Instructions: Tylenol and Motrin for pain. 2 to 4 drops to your right ear 2-3 times a day till gone. Finish your antibiotic. Follow-up with the ear nose and throat doctor, Dr. Rainer Knox if not improving. Disposition Disposition: Home, Self Care
[2022-08-20] MEDS: HYDROcodone Bitartrate/Apap 5/325 Tablet PO (18:58)
== END 2022-08-20 19:07 | disposition home or self-care (01) ==
PROVIDERS: Emergency Provider Emergency Medicine; PCP Nurse Practitioner; Visit Provider Emergency Medicine
DX: H60.91 Unspecified otitis externa, right ear (principal); Z87.891 Personal history of nicotine dependence
CPT/HCPCS: 99283

== ENCOUNTER → 2023-09-06 | Outpatient (CLI) | payer BC, SELFPAY ==
[2023-09-06 22:48] LABS: Absolute Lymphocyte Count 1.79 X10^3/uL (0.83-4.51); Absolute Neutrophil Count 3.4 X10^3/uL (2.0-7.7); Basophil# 0.05 X10^3/uL; Basophil% 0.9 % (0-1); Eosinophil# 0.08 X10^3/uL; Eosinophils% 1.4 % (0-5); Hematocrit 46.9 % (40-54); Hemoglobin 15.8 g/dL (13.0-16.5); Lymphocyte # 1.79 X10^3/ul (0.83-4.51); Lymphocyte % 31.1 % (19-41); Mean Corp Hgb Conc 33.7 g/dL (32-36); Mean Corpuscular Hgb 30.7 pg (27.0-32.0); Mean Corpuscular Volume 91.1 fL (80-94); Mean Platelet Vol. 11.1 fl (6.2-12.0); Monocyte# 0.42 X10^3/uL; Monocyte% 7.3 % (0-10); NRBC Flagged by Analyzer 0 % (0-5); Neutrophil # 3.35 X10^3/uL (2.7-7.7); Neutrophil % 58.1 % (47-70); Platelet Count 162 K/mm3 (150-450); RBC Distribution Width CV 12.8 % (11.6-14.6); RBC Distribution Width SD 42.9 fl (35.1-43.9); Red Blood Count 5.15 M/mm3 (4.6-6.2); White Blood Count 5.8 K/mm3 (4.4-11.0)
[2023-09-06 23:04] LABS: ALB/GLOB Ratio 1.3 RATIO (0.9-2.4); AST(SGOT) 40 U/L (15-37); Alanine Aminotransfer ALT/SGPT 108 U/L (16-61); Albumin, Serum 4.3 g/dL (3.2-5.0); Alkaline Phosphatase 68 U/L (45-117); Anion Gap 5 (5-15); BUN 21 mg/dL (7-18); BUN/Creat Ratio 16.8 RATIO (10-20); Calcium,Total 9.5 mg/dL (8.5-10.1); Chloride 104 mmol/L (98-107); Cholesterol 161 mg/dL (200); Creatinine, Serum 1.25 mg/dL (0.70-1.30); EST Glomerular Filtration Rate 67 mL/min (>60); Est Glom Filt Rate - Afr Amer 81 mL/min (>60); Globulin 3.3 g/dL (2.2-4.2); Glucose 107 mg/dL (74-106); High Density Lipoprotein 40 mg/dL; Potassium 3.7 mmol/L (3.5-5.1); Protein, Total 7.6 g/dL (6.4-8.2); Sodium Level 139 mmol/L (136-145); Thyroid Stim Hormone (TSH) 2.11 uIU/mL (0.358-3.74); Triglycerides 168 mg/dL; Very Low Density Lipoprotein 34 mg/dL (5-40)
== END | disposition home or self-care (01) ==
PROVIDERS: PCP Nurse Practitioner; Visit Provider Nurse Practitioner
DX: E87.6 Hypokalemia (principal); I10 Essential (primary) hypertension
CPT/HCPCS: 80053; 80061; 84443; 85025

== ENCOUNTER 2024-04-12 21:59 | Emergency (ER) | payer OTHER, SELFPAY ==
[2024-04-12 21:59] VITALS: BP 165/100; PULSE 75; RESP 18; TEMP 36.1; O2SAT 99; BMI 44.2
--- NOTE | 2024-04-12 22:12 | EDS_ITS ---
HPI History of Present Illness Chief Complaint: Lower Extremity Injury Detail of Chief Complaint: Left knee swelling Informant: patient Narrative Narrative: Patient presents with left knee swelling that started 4 days ago. Denies known injury although he had gone up on a ladder before that and felt a twinge or pain behind his left knee. Patient also states that for the last several months he has had swelling in both lower extremities especially the feet. Denies any new medications. He had no fevers or chills or sweats. No history of gout. Denies recent travel or surgery. [facility] Medical History CHF (congestive heart failure) Fatty liver Hypertension Sleep apnea Ureteral calculi Home Medications ?Medication ?Instructions ?Recorded ?Last Taken ?Type cholecalciferol (vitamin D3) 125 5,000 unit PO DAILY 01/25/18 09/18/19 History mcg (5,000 unit) capsule albuterol sulfate 90 mcg/actuation 2 puff inhalation Q4H PRN 07/29/22 Unknown Rx aerosol inhaler (ProAir HFA) shortness of breath or wheezing #6.7 grams hydrochlorothiazide 25 mg tablet 25 mg PO DAILY #90 tabs 07/29/22 Unknown Rx potassium chloride 20 mEq 20 meq PO DAILY #90 tabs 07/30/22 Unknown Rx tablet,extended release lisinopril 40 mg tablet 40 mg PO DAILY #90 tabs 09/06/23 Unknown Rx Allergy/AdvReac Type Severity Reaction Status Date / Time No Known Allergies Allergy Verified 04/12/24 21:59 Surgical History History of lithotripsy Social History (Updated 04/12/24 @ 22:32 by Laurel Garcia) household members: family Smoking Status: Former smoker ROS ROS ED Review of Systems ROS Unobtainable: other Constitutional Constitutional ED: Reports lethargy; Denies chills, fever(s), sweats or weight loss Eyes Eyes: Denies blurry vision, change in vision or diplopia ENT ENT ED: Denies rhinorrhea or sore throat Cardiovascular Cardiovascular: Denies chest pain, orthopnea or racing heartbeat Respiratory/Chest Respiratory/Chest: Denies cough, dyspnea, dyspnea on exertion, orthopnea or sputum Gastrointestinal Gastrointestinal: Denies abdominal pain, diarrhea, nausea or vomiting Genitourinary Genitourinary ED: Denies dysuria, hematuria or urinary frequency Musculoskeletal Musculoskeletal: Reports other Details: Left knee swelling ; Denies arthralgias, back pain, myalgias or neck pain Integumentary Denies abscess, Abrasions or rash Neurologic Neurologic: Denies headache(s) or weakness Psychiatric Psychiatric: Denies anxiety, depression or suicidal thoughts Endocrine Endocrinology: Denies polydipsia, polyphagia or polyuria Hematologic/Lymphatic Hematologic/Lymphatic: Denies easy bleeding, easy bruising or lymphadenopathy Allergic/Immunologic Allergic/Immunologic ED: Denies mouth swelling, tongue swelling or urticaria EXAM Physical Exam Const Vital Signs: 04/12/24 21:59 Temperature 97 F L Temperature Source Temporal Pulse Rate 75 Respiratory Rate 18 Blood Pressure 165/100 H Blood Pressure Mean 121 Pulse Ox 99 Positive well nourished and well developed General Appearance ED: well developed and NAD HEENT Reports TM's clear and moist mucous membranes normocephalic and atraumatic; Negative for trauma or tenderness Tympanic Membrane ED: Yes TM's clear Eyes PERRL and EOMs intact bilaterally General Eye ED: Negative for pale conjunctiva or scleral icterus Neck no lymphadenopathy, supple and no JVD General: Negative for tenderness Chest Wall inspection of chest normal and palpation of chest normal Chest: Negative for tenderness Resp normal respiratory effort and clear to auscultation bilaterally Effort and Inspection: Negative for respiratory distress or pain with movement Auscultation: Negative for rhonchi, wheezes or diminished lung sounds Cardio regular rate, regular rhythm, S1 normal heart sound, S2 normal heart sound and no murmurs Peripheral Pulses: pulses 2+ throughout GI normal to inspection, nondistended, normoactive bowel sounds, soft to palpation, non-tender, non-distended and no masses Back/Spine no CVA tenderness and no thoracic nor lumbar tenderness Extremity Extremity Narrative: Left lower extremity-patient has a small joint effusion. There is no erythema or warmth noted. Range of motion is painless. Neurovascularly intact distally. Ligamentously stable. Trace edema both lower extremities. General Extremety ED: Negative for edema General Extremity: Negative for edema Neuro oriented x3, CN's II-XII intact bilaterally, no sensory deficits noted and gait normal Sensorium / Orientation: awake, alert, oriented to person, oriented to place and oriented to time Motor Exam: strength 5/5 throughout and strength abnormal Psych mental status grossly normal Skin no rashes or lesions noted and no wounds MDM MDM MDM Narrative Medical decision making narrative: Patient presents with left knee swelling without any significant pain. Recalls being on a ladder prior to the pain starting and the pain behind his left knee. Patient had venous Doppler to rule out DVT as he also describes some generalized swelling to the lower extremities. Venous Doppler negative for DVT. Patient also had x-rays of the left knee which did not show any significant abnormalities and only some mild degenerative changes. This point etiology of swelling and discomfort unclear although I suspect possibly a knee sprain. Will refer to orthopedics for follow-up. Vies to return if pain, fever, redness, increased swelling, or condition should worsen anyway. Radiography Diagnostic Testing: Clinical Impression(s) from Imaging Studies Knee X-Ray 04/12/24 22:18 IMPRESSION: Mild degenerative changes. Electronically Signed: Williams Bedolla MD at 22:50 EDT Reading Location ID and State: [facility] / [place] Tel , Service support , 4 view x-rays of the left knee obtained interpreted by myself no evidence of fracture large effusion or lytic lesions. Radiology in agreement. Radiology felt there was some mild degenerative changes. Discharge Plan Triage Chief Complaint: Lower Extremity Injury ED Provider: Jalen Arriaga Dx/Rx/DC Orders Clinical Impression: Pain and swelling of left knee Instructions: ED Knee Pain of Uncertain Cause, ED Knee Effusion Prescriptions: No Action hydrochlorothiazide 25 mg tablet 25 mg PO DAILY Qty: 90 3RF albuterol sulfate [ProAir HFA] 90 mcg/actuation HFA aerosol inhaler 2 puff inhalation Q4H PRN (Reason: shortness of breath or wheezing) Qty: 6.7 12RF potassium chloride 20 mEq tablet extended release 20 meq PO DAILY Qty: 90 3RF lisinopril 40 mg tablet 40 mg PO DAILY Qty: 90 3RF cholecalciferol (vitamin D3) 5,000 UNIT capsule 5,000 unit PO DAILY Primary Care Provider: Salas Mahajan Referrals: Damon Mathur MD [Med Staff - Active Staff] - 5-7 Days Debbie Alvarez COMPRESS MACHINE OPERATOR, COMPRESS MACHINE OPERATOR-C [Med Staff - Adv Practice Prof] - Print Language: Turkmen Disposition Disposition: Home, Self Care
--- NOTE | 2024-04-12 22:18 | RAD_ITS ---
INDICATION: Knee swelling, no known injury EXAMINATION/TECHNIQUE: X-RAY - LEFT XR Knee Complete 4 Views or More 4 VIEWS COMPARISON: None. FINDINGS: SOFT TISSUES: No soft tissue swelling or gas. No radiopaque foreign body. BONES/JOINTS: No acute fracture. Joint spaces anatomically aligned with mild degenerative changes. No sclerotic or destructive changes observed. RAD/Knee 4 or More Views IMPRESSION: Mild degenerative changes. Electronically Signed: Williams Bedolla MD at 22:50 EDT ,
--- NOTE | 2024-04-12 22:35 | US_ITS ---
STUDY: VENOUS DOPPLER ULTRASOUND - LEFT LOWER EXTREMITY REASON FOR EXAM: Male, 44 years old patient with left knee swelling. TECHNIQUE: Ultrasound evaluation of the deep vein system to include damon-scale imaging and compression was performed. Damon-scale imaging and Doppler sonographic evaluation, including duplex spectral analysis and qualitative color flow sonography, was performed. COMPARISON: Prior comparable comparison studies are not available for review at this time. FINDINGS: Common Femoral Vein: Normal compression, spontaneity and augmentation. Normal color Doppler. Common Femoral Vein/Greater Saphenous Junction: Normal compression. Femoral Proximal: Normal compression. Femoral Middle: Normal compression, spontaneity and augmentation. Normal color Doppler. Femoral Distal: Normal compression. Popliteal Vein: Normal compression, spontaneity and augmentation. Normal color Doppler. Posterior Tibial Vein: Normal compression. Peroneal Vein: Normal compression. There is no demonstrated deep venous thrombosis. US/Venous Duplex Imag/Limited/Uni IMPRESSION: No sonographic evidence of deep venous thrombosis of left common femoral, femoral or popliteal veins. Electronically Signed: Natalie Villalta MD at 0:48 EDT ,
[2024-04-12 23:16] VITALS: BP 135/76; PULSE 72; RESP 18; TEMP 36.8; O2SAT 99
== END 2024-04-12 23:17 | disposition home or self-care (01) ==
PROVIDERS: Emergency Provider Emergency Medicine; PCP Family Medicine; Visit Provider Emergency Medicine
DX: M25.562 Pain in left knee (principal); M79.89 Other specified soft tissue disorders; I10 Essential (primary) hypertension; G47.30 Sleep apnea, unspecified; Z87.891 Personal history of nicotine dependence; Z79.51 Long term (current) use of inhaled steroids; Z79.899 Other long term (current) drug therapy
CPT/HCPCS: 73564; 93971; 99282

== ENCOUNTER → 2024-07-26 | Outpatient (CLI) | payer BC, SELFPAY ==
--- NOTE | 2024-07-26 12:34 | RAD_ITS ---
STUDY: X-RAY - LEFT KNEE REASON FOR EXAM: Male, 44 years old. PAIN TECHNIQUE: 4 views of the left knee. COMPARISON: None. FINDINGS: Normal visualized distal femur. Normal visualized proximal tibia and fibula. Normal proximal tibiofibular articulation. There is no demonstrated fracture. Normal medial femorotibial compartment. Normal lateral femorotibial compartment. Normal patellofemoral articulation. There is no demonstrated joint effusion. The soft tissue structures are unremarkable. RAD/Knee 4 or More Views IMPRESSION: Normal x-ray examination of the left knee. Electronically Signed: Terry Suarez MD at 11:58 EDT ,
--- NOTE | 2024-07-26 12:34 | RAD_ITS ---
INDICATION: LUNG NODULE EXAMINATION/TECHNIQUE: X-RAY - XR Chest 2 Views COMPARISON: No previous relevant examinations available for comparison.. FINDINGS: LIFE-SUPPORT AND LINES: 1. None HEART AND VESSELS: The cardiac silhouette, pulmonary vasculature have normal appearance. No evidence of congestive failure. LUNGS AND PLEURAL SPACES: Lungs are clear. No focal infiltrate, consolidation or effusions. No evidence of pneumothorax. No pulmonary mass is noted. MEDIASTINUM AND HILAR REGIONS: No masses adenopathy noted. No areas of calcification. Visualized upper airway is normal in position. BONY ELEMENTS: No acute bony changes noted. There is a moderate dextroscoliotic curvature of the thoracic spine. RAD/Chest PA and Lateral IMPRESSION: 1. No evidence of acute cardiopulmonary process 2. No previous imaging for comparison and to address the previously reported nodule. No distinct pulmonary nodules identified on current exam. Electronically Signed: Francis Almendarez MD at 19:39 EDT ,
== END | disposition home or self-care (01) ==
LOC: MTRAD 12:33
PROVIDERS: PCP Family Medicine; Referring Provider Family Medicine; Visit Provider Family Medicine
DX: R91.1 Solitary pulmonary nodule (principal); M25.562 Pain in left knee
CPT/HCPCS: 71046; 73564

== ENCOUNTER → 2024-11-01 | Outpatient (CLI) | payer BC, SELFPAY ==
[2024-11-01 17:53] LABS: Anion Gap 6 (5-15); BUN 16 mg/dL (7-18); BUN/Creat Ratio 13.2 RATIO (10-20); Calcium,Total 9.7 mg/dL (8.5-10.1); Chloride 101 mmol/L (98-107); Cholesterol 214 mg/dL (200); Creatinine, Serum 1.21 mg/dL (0.70-1.30); EST Glomerular Filtration Rate 69 mL/min (>60); Est Glom Filt Rate - Afr Amer 84 mL/min (>60); Glucose 103 mg/dL (74-106); High Density Lipoprotein 32 mg/dL; Potassium 3.4 mmol/L (3.5-5.1); Sodium Level 136 mmol/L (136-145); Triglycerides 357 mg/dL; Very Low Density Lipoprotein 71 mg/dL (5-40)
== END | disposition home or self-care (01) ==
PROVIDERS: PCP Family Medicine; Referring Provider Family Medicine; Visit Provider Family Medicine
DX: I10 Essential (primary) hypertension (principal)
CPT/HCPCS: 36415; 80048; 80061

== ENCOUNTER → 2024-12-25 | Outpatient (CLI) | payer BC, SELFPAY ==
[2024-12-25 11:05] LABS: ALB/GLOB Ratio 1.5 RATIO (0.9-2.4); AST(SGOT) 71 U/L (15-37); Alanine Aminotransfer ALT/SGPT 159 U/L (16-61); Albumin, Serum 4.6 g/dL (3.2-5.0); Alkaline Phosphatase 65 U/L (45-117); Anion Gap 9 (5-15); BUN 14 mg/dL (7-18); BUN/Creat Ratio 10.7 RATIO (10-20); Chloride 102 mmol/L (98-107); Cholesterol 100 mg/dL (200); Creatinine, Serum 1.31 mg/dL (0.70-1.30); EST Glomerular Filtration Rate 63 mL/min (>60); Est Glom Filt Rate - Afr Amer 76 mL/min (>60); Glucose 89 mg/dL (74-106); High Density Lipoprotein 33 mg/dL; Potassium 2.9 mmol/L (3.5-5.1); Protein, Total 7.6 g/dL (6.4-8.2); Sodium Level 140 mmol/L (136-145); Triglycerides 139 mg/dL; Very Low Density Lipoprotein 28 mg/dL (5-40)
== END | disposition home or self-care (01) ==
LOC: MTLAB 08:22
PROVIDERS: PCP Family Medicine; Referring Provider Family Medicine; Visit Provider Family Medicine
DX: I10 Essential (primary) hypertension (principal); Z86.39 Personal history of other endocrine, nutritional and metabolic disease
CPT/HCPCS: 36415; 80053; 80061

== ENCOUNTER 2025-01-01 17:54 | Emergency (ER) | payer BC, SELFPAY ==
[2025-01-01 17:55] VITALS: BP 136/93; PULSE 86; RESP 18; TEMP 36.4; O2SAT 97; BMI 42.7
[2025-01-01 18:54] VITALS: BP 128/90; PULSE 80; RESP 18; O2SAT 99
[2025-01-01 19:35] LABS: Absolute Lymphocyte Count 1.86 X10^3/uL (0.83-4.51); Absolute Neutrophil Count 4.1 X10^3/uL (2.0-7.7); Basophil# 0.05 X10^3/uL; Basophil% 0.8 % (0-1); Eosinophils% 1.5 % (0-5); Hematocrit 45.3 % (40-54); Hemoglobin 16.2 g/dL (13.0-16.5); Lymphocyte # 1.86 X10^3/ul (0.83-4.51); Mean Corp Hgb Conc 35.8 g/dL (32-36); Mean Corpuscular Hgb 31.6 pg (27.0-32.0); Mean Corpuscular Volume 88.5 fL (80-94); Mean Platelet Vol. 10.2 fl (6.2-12.0); Monocyte% 7.5 % (0-10); NRBC Flagged by Analyzer 0 % (0-5); Neutrophil # 4.09 X10^3/uL (2.7-7.7); Neutrophil % 61.4 % (47-70); Platelet Count 177 K/mm3 (150-450); RBC Distribution Width CV 13.1 % (11.6-14.6); RBC Distribution Width SD 42.4 fl (35.1-43.9); Red Blood Count 5.12 M/mm3 (4.6-6.2); White Blood Count 6.7 K/mm3 (4.4-11.0)
[2025-01-01 19:47] LABS: Alcohol, Blood (Medical)-Serum < 3.0 mg/dL
[2025-01-01 19:50] LABS: Anion Gap 11 (5-15); BUN 14 mg/dL (7-18); BUN/Creat Ratio 12.3 RATIO (10-20); Calcium,Total 9.5 mg/dL (8.5-10.1); Chloride 103 mmol/L (98-107); Creatinine, Serum 1.14 mg/dL (0.70-1.30); EST Glomerular Filtration Rate 74 mL/min (>60); Est Glom Filt Rate - Afr Amer 89 mL/min (>60); Estimated Creatinine Clearance 131.85 ml/min; Glucose 104 mg/dL (74-106); Sodium Level 141 mmol/L (136-145)
[2025-01-01 19:53] LABS: Amphetamine Urine NEGATIVE (<1000 ng/mL); Barbiturate Urine VISTA NEGATIVE (< 200 ng/mL); Benzodiazepine Urine VISTA NEGATIVE (< 200 ng/mL); Cocaine Urine VISTA NEGATIVE (< 300 ng/mL); Ecstacy Urine VISTA NEGATIVE (< 500 ng/mL); Methadone Urine VISTA NEGATIVE (< 300 ng/mL); Opiates Urine NEGATIVE (< 300 ng/mL); PCP Urine NEGATIVE (< 25 ng/mL); THC Urine VISTA NEGATIVE (< 50 ng/mL); Vista UDS pH Range 6
[2025-01-01 20:00] VITALS: BP 145/87; PULSE 68; RESP 18; O2SAT 99
[2025-01-01 21:00] VITALS: BP 146/82; PULSE 71; RESP 18; O2SAT 97
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
--- NOTE | 2025-01-01 21:45 | EDS_ITS ---
HPI HPI - Psych History of Present Illness Chief Complaint: Depression Informant: patient Onset/Context/Timing Onset: Month(s) Context: Gradual Onset Conflict: Family Timing: Continuous Worsened by: Situational factors Relieved by: Nothing Associated Symptoms Associated Symptoms - Psych: Positive for Depressed, Change in Eating, Change in sleeping and Decreased Interest; Negative for Suicidal Thoughts, Paranoia, Visual Hallucinations or Auditory Hallucinations Narrative Narrative: Patient presents with depression that has been getting worse over the past few months. Patient states that his wants a divorce. Patient states that he still lives with his . Patient states this has been making him more depressed. Patient states he has not been eating or sleeping as much as normal. Patient states he is also lost interest in his normal activities. Patient denies any suicidal ideation or plan. Patient denies any visual or auditory hallucinations. Patient denies any paranoid ideations. PFSH PFS Medical History Fatty liver Hypertension CHF (congestive heart failure) Sleep apnea Ureteral calculi Home Medications ?Medication ?Instructions ?Recorded ?Last Taken ?Type hydrochlorothiazide 25 mg tablet 25 mg PO DAILY #90 ta bs 07/29/22 Unknown Rx lisinopril 40 mg tablet 40 mg PO DAILY #90 tabs 08/15 03/06 Unknown Rx amlodipine 5 mg tablet 5 mg PO DAILY 01/01/25 Unkno wn History hydroxyzine pamoate 25 mg capsule 50 mg (2 x 25 mg) PO TID PRN PRN 01/01/25 Unknown Rx Anxiety #30 CAPSULES rosuvastatin 10 mg tablet 10 mg PO QHS 01/01/25 Unknow n History Allergy/AdvReac Type Severity Reaction Status Date / Time No Known Allergies Allergy Verified 01/01/25 17:55 Surgical History History of lithotripsy Social History household members: family Smoking Status: Former smoker ROS ROS ED Constitutional Constitutional ED: Denies chills or fever(s) Eyes Eyes: Denies blurry vision or change in vision ENT ENT ED: Denies rhinorrhea or sore throat Cardiovascular Cardiovascular: Denies chest pain or palpitations Respiratory/Chest Respiratory/Chest: Denies cough or dyspnea Gastrointestinal Gastrointestinal: Denies nausea or vomiting Genitourinary Genitourinary ED: Denies dysuria or hematuria Musculoskeletal Musculoskeletal: Reports back pain; Denies neck pain Integumentary Reports rash; Denies abscess Neurologic Neurologic: Denies headache(s) or weakness Psychiatric Psychiatric: Reports anxiety and depression Allergic/Immunologic Allergic/Immunologic ED: Denies mouth swelling or urticaria EXAM Physical Exam Const Vital Signs: 01/01/25 17:55 01/01/25 18:54 01/01/25 20:00 Temperature 97.6 F L Temperature Source Temporal Pulse Rate 86 80 68 Respiratory Rate 18 18 18 Blood Pressure 136/93 H 128/90 H 145/87 H Blood Pressure Mean 107 102 106 Pulse Ox 97 99 99 Oxygen Delivery Method Room Air Room Air Room Air 01/01/25 21:00 Temperature Temperature Source Pulse Rate 71 Respiratory Rate 18 Blood Pressure 146/82 H Blood Pressure Mean 103 Pulse Ox 97 Oxygen Delivery Method Room Air Positive well nourished and well developed General Appearance ED: well developed and NAD HEENT Reports moist mucous membranes normocephalic and atraumatic Neck supple and no JVD Resp normal respiratory effort and clear to auscultation bilaterally Cardio Rate: regular rate Rhythm: regular rhythm GI non-tender and non-distended Palpation: soft Neuro oriented x3, CN's II-XII intact bilaterally and no sensory deficits noted Juan Coma Scale: document GCS findings Spontaneous Obeys Commands Oriented 15 Sensorium / Orientation: alert Motor Exam: strength 5/5 throughout Psych mental status grossly normal and cooperative Appearance: appropriate Attitude: calm Activity / Motor Behavior: appropriate eye contact Speech: normal speech Mood & Affect: depressed and flat affect Thought Content: No suicidality, No homicidality, No delusion(s) and No hallucination(s) Insight: insight good Judgement: judgement good MDM MDM MDM Narrative Medical decision making narrative: Medical screening labs will be obtained. CBC will be obtained to assess for leukocytosis and anemia. Basic metabolic profile will be obtained to assess for electrolyte abnormality and renal function. Serum alcohol level will be obtained to assess for alcohol intoxication. Urine drug screen will be obtained to assess for substance abuse. Lab Data Attestation: I reviewed the patient's lab results. Lab results narrative: CBC was reviewed and was within normal limits. Basic metabolic profile was reviewed. Potassium was slightly low at 3.0. The remainder is within normal limits. Serum alcohol level was reviewed and was less than 3.0. Urine drug screen was reviewed and was negative. Labs: Laboratory Results - last 24 hr 01/01/25 01/01/25 19:10 19:20 WBC 6.7 RBC 5.12 Hgb 16.2 Hct 45.3 MCV 88.5 MCH 31.6 MCHC 35.8 RDW Std Deviation 42.4 RDW Coeff of [place] 13.1 Plt Count 177 MPV 10.2 Immature Gran % (Auto) 0.800 Neut % (Auto) 61.4 Lymph % (Auto) 28.0 [place] % (Auto) 7.5 Eos % (Auto) 1.5 Baso % (Auto) 0.8 Absolute Neuts (auto) 4.1 Absolute Lymphs (auto) 1.86 Nucleated RBC % 0 Sodium 141 Potassium 3.0 L Chloride 103 Carbon Dioxide 27.0 Anion Gap 11 BUN 14 Creatinine 1.14 Estim Creat Clear Calc 131.85 Est GFR (MDRD) Af Amer 89 Est GFR (MDRD) Non-Af 74 BUN/Creatinine Ratio 12.3 Glucose 104 Calcium 9.5 Urine Opiates Screen NEGATIVE Urine Methadone Screen NEGATIVE Ur Barbiturates Screen NEGATIVE Ur Phencyclidine Scrn NEGATIVE Ur Amphetamines Screen NEGATIVE MDMA (Ecstasy) Screen NEGATIVE U Benzodiazepines Scrn NEGATIVE Urine Cocaine Screen NEGATIVE U Cannabinoids Screen NEGATIVE Ur Drug Screen Comment Ethyl Alcohol < 3.0 Treatment and Re-Evaluation Narrative: Patient was advised of his findings. Patient was given a dose of potassium here. company laundry worker was in to evaluate the patient. She felt the patient could go home. Patient requested something to help with his anxiety. Patient was given a prescription for Vistaril. Patient was instructed to follow-up with his primary care physician in 3 to 5 days. Patient was also given a referral for crisis counselor. Discharge Plan Triage Chief Complaint: Depression ED Provider: Alan Mayer Dx/Rx/DC Orders Clinical Impression: Anxiety, Depression Instructions: ED Depression Prescriptions: New hydroxyzine pamoate 25 mg capsule 50 mg PO TID PRN PRN (Reason: Anxiety) Qty: 30 0RF No Action hydrochlorothiazide 25 mg tablet 25 mg PO DAILY Qty: 90 3RF lisinopril 40 mg tablet 40 mg PO DAILY Qty: 90 3RF amlodipine 5 mg tablet 5 mg PO DAILY rosuvastatin 10 mg tablet 10 mg PO QHS Primary Care Provider: Salas Mahajan Referrals: Counseling,Center [Group of Physicians] - 3-5 Days Salas Mahajan MD [Primary Care Provider] - 5-7 Days Print Language: [place] Zealander Disposition Disposition: Home, Self Care
[2025-01-01] MEDS: Potassium Chloride Oral Tablet 20 MEQ 40 MEQ PO (22:09)
[2025-01-01] MEDS: hydrOXYzine PAM 25 MG Capsule PO (22:47)
== END 2025-01-01 22:48 | disposition home or self-care (01) ==
PROVIDERS: Emergency Provider Emergency Medicine; PCP Family Medicine; Visit Provider Emergency Medicine
DX: F32.A Depression, unspecified (principal); F41.9 Anxiety disorder, unspecified; Z63.0 Problems in relationship with spouse or partner; E87.6 Hypokalemia; I10 Essential (primary) hypertension; Z79.899 Other long term (current) drug therapy; Z87.891 Personal history of nicotine dependence
CPT/HCPCS: 80048; 80307; 82077; 85025; 99285

== ENCOUNTER → 2025-05-30 | Outpatient (CLI) | payer BC, SELFPAY ==
[2025-05-30 18:47] LABS: AST(SGOT) 27 U/L (<=37); Alanine Aminotransfer ALT/SGPT 25 U/L (<=46); Albumin, Serum 4.9 g/dL (3.5-5.0); Alkaline Phosphatase 66 U/L (40-129); Anion Gap 13 (5-15); BUN 18 mg/dL (4-19); BUN/Creat Ratio 18.8 RATIO (10-20); Calcium,Total 9.9 mg/dL (7.6-11.0); Carbon Dioxide 26.3 mmol/L (21.0-32.0); Chloride 103 mmol/L (98-108); Globulin 2.3 g/dL (2.2-4.2); Glucose 95 mg/dL (70-99); Potassium 3.5 mmol/L (3.3-5.1)
[2025-06-01 05:07] LABS: HEPATITIS B SURFACE AG Negative (Negative); Hep C Antibodies Non Reactive (Non Reactive)
== END | disposition home or self-care (01) ==
LOC: MTLAB 16:35
PROVIDERS: PCP Family Medicine; Referring Provider Family Medicine; Visit Provider Family Medicine
DX: R74.8 Abnormal levels of other serum enzymes (principal)
CPT/HCPCS: 36415; 80053; 80074